=== PATIENT | female | born 1955 | race Caucasian/White ===

== ENCOUNTER → 2018-09-12 | Outpatient (CLI) | payer MEDICARE, MEDICAID ==
--- NOTE | 2018-09-12 13:05 | Diagnostic Imaging Report ---
Indication: [id number] history of smoking. Comparison: None Technique: Routine noncontrast low-dose CT of the chest was performed per screening protocol. Auto Exposure Controls were utilized during the CT exam to meet ALARA standards for radiation dose reduction Findings: Evaluation of the lung villanueva demonstrate multiple nodular and micronodular densities. These are as follows: * An 8 x 5 mm micronodular density associated with the major fissure on the left (image 9, series 2). * Punctate 2 mm subpleural/juxtapleural micronodule in the lateral margins of the left lower lobe (image 134). * 2 mm subpleural micronodules within the anterolateral margin of the right upper lobe (image 61, series 2). * 10 x 9 mm nodular density associated with the anterior margins of the minor fissure on the right (image 100). * 9 x 4 mm juxtapleural micronodular density within the anterolateral margins in the right lower lobe (image 140). There is no focal consolidation, large effusion, nor pneumothorax. There is background mild emphysematous disease. Cardiomediastinal structures show normal heart size. There is no large pericardial effusion. No pathologically enlarged or morphologically abnormal adenopathy is seen within the mediastinum, amairani, nor axilla. Bony structures show no acute abnormalities. No lytic or blastic osseous lesions are identified. Included portions of the upper abdomen are unremarkable. Impression: 1. Multiple nodular and micronodular densities identified bilaterally, largest of which is seen associated with the anterior margins of the minor fissure on the right. Three month followup is recommended. 2. Background mild emphysematous disease. Lung rads category: 4-A Dictated by: Dictated on workstation # [id number]
== END ==
LOC: RAD 11:25
PROVIDERS: ATTEND Internal Medicine
DX: Z12.2 Encounter for screening for malignant neoplasm of respiratory organs (principal); J43.9 Emphysema, unspecified; J98.4 Other disorders of lung; R91.8 Other nonspecific abnormal finding of lung field; F17.210 Nicotine dependence, cigarettes, uncomplicated

== ENCOUNTER → 2019-01-08 | Outpatient (CLI) | payer MEDICARE, MEDICAID ==
--- NOTE | 2019-01-08 15:28 | Diagnostic Imaging Report ---
EXAMINATION: CT chest for cancer screening. INDICATION: Nicotine dependence with a 45 year pack smoking history. TECHNIQUE: Routine images of the thorax were obtained using the CT low-dose lung cancer screening protocol. PERSONAL HISTORY: The previous CT low dose lung cancer screening exam of 09/12/2018 noted several parenchymal densities. This included an 8 x 5 mm micronodular density associated with the major fissure on the left. That finding is again evident and no different (image 86/series 2). FINDINGS: The 2 mm punctate subpleural density along the lateral margin of the left lower lobe is also stable (image 129/series 2) as is the 2 mm subpleural nodule in the right upper lobe (image 57/series 2). The 9 x 10 mm nodular density in the anterior margin of the minor fissure on the right now measures 9 x 11 mm but seems similar to the prior exam (image 95/series 2). The pleural-based density along the periphery of the right lower lobe measuring 4 x 9 mm previously seems stable as well (image 134/series 2). The overall appearance of the lungs does not appear to have changed significantly otherwise. There is still no evidence for pneumonia, failure, or pleural effusion to indicate an acute abnormality. Emphysematous changes are again seen in both lungs. The heart is stable in size. Coronary artery calcifications are again evident. The aorta is not abnormally dilated. There is no obvious mediastinal or hilar adenopathy. The thyroid gland, where visualized, is unremarkable. There is no obvious breast mass. Sections through the upper abdomen show the liver to be prominent and of lower density than usually seen. This does suggest fatty metamorphosis. The bone windows show no sign of a fracture or destructive lesion. IMPRESSION: 1. The parenchymal nodules seen previously appear stable. A 6 month followup low-dose lung cancer screening exam would be recommended for continued evaluation. 2. There is no acute cardiopulmonary abnormality noted. Lung-RADS category: 3. Dictated by: Dictated on workstation # [id number]
== END ==
LOC: RAD 12:35
PROVIDERS: ATTEND Internal Medicine
DX: Z12.2 Encounter for screening for malignant neoplasm of respiratory organs (principal); R91.8 Other nonspecific abnormal finding of lung field; F17.210 Nicotine dependence, cigarettes, uncomplicated